=== PATIENT | female | born 1985 ===

== ENCOUNTER 2017-01-08 09:02 | Inpatient (IN) ==
[2017-01-08] MEDS ORDERED: GLUCAGON 1 MG VIAL IM PRN (09:37)
[2017-01-08] MEDS ORDERED: DEXTROSE 50% 25 GM/50 ML VIAL IV PRN (09:37)
[2017-01-08] MEDS: INSULIN REGULAR 100 UNIT/ML SUBCUT SCH ×3 (10:28→20:18)
[2017-01-08] MEDS: INSULIN NPH 100 UNIT/ML SUBCUT SCH ×2 (10:29→17:40)
[2017-01-08 10:37] LABS: Basophils % 0.2 % (0.0-0.8); Eosinophils # 0.1 10*3/uL (0.0-0.87); Eosinophils % 0.9 % (0.00-10.9); Hematocrit 34.9 VOL% (35.7-47.0); Hemoglobin 11.7 GM/DL (12.0-16.0); Immature Granulocytes % 0.4 %; Immature Granulocytes Absolute 0.05 #; Lymphocytes # 5.4 10*3/uL (1.4-4.0); Mean Corpuscular HGB Conc 33.5 GM/DL (32-36); Mean Corpuscular Hemoglobin 30 PG (27-34); Mean Corpuscular Volume 88.1 FL (87-102); Mean Platelet Volume 10.3 FL (9.6-12.0); Monocytes # 0.8 10*3/uL (0.11-0.8); Monocytes % 5.6 % (1.7-12.7); Neutrophils # 7.4 10*3/uL (1.4-7.4); Neutrophils % 53.9 % (38.7-73.9); Platelet Count 274 T/CUMM (130-400); Red Blood Count 3.96 MC/CUMM (3.8-5.5); Red Cell Distribution Width 12.8 % (9.3-17.3); White Blood Count 13.8 T/CUMM (4-12)
[2017-01-08 11:03] LABS: Bilirubin,Total 0.4 MG/DL (0.2-1.0); Calcium 8.5 MG/DL (8.5-10.1); Potassium 3.9 MMOL/L (3.5-5.1)
[2017-01-08] MEDS ORDERED: ONDANSETRON 4 MG TABLET PO PRN (16:04)
[2017-01-08] MEDS ORDERED: INSULIN NPH 100 UNIT/ML SUBCUT SCH (16:30)
[2017-01-08] MEDS: TOBRAMYCIN/DEXAMETHASONE 0.3%-0.1% OPH SUSP 2.5 ML BOTTLE LEFT EYE SCH (20:15)
[2017-01-09] MEDS: TOBRAMYCIN/DEXAMETHASONE 0.3%-0.1% OPH SUSP 2.5 ML BOTTLE LEFT EYE SCH ×6 (00:05→20:11)
[2017-01-09] MEDS: INSULIN REGULAR 100 UNIT/ML SUBCUT SCH ×5 (00:05→20:11)
[2017-01-09] MEDS: INSULIN NPH 100 UNIT/ML SUBCUT SCH ×2 (07:55→17:44)
[2017-01-09] MEDS ORDERED: INSULIN REGULAR 100 UNIT/ML SUBCUT ONE (09:43)
[2017-01-09] MEDS ORDERED: INSULIN NPH 100 UNIT/ML SUBCUT SCH ×2 (10:00→16:30)
[2017-01-09] MEDS ORDERED: INSULIN REGULAR ** CONC 500 UNIT/ML ** 20 ML VIAL SUBCUT SCH (16:30)
[2017-01-09] MEDS ORDERED: INSULIN REGULAR 100 UNIT/ML SUBCUT SCH ×2 (16:30→16:51)
[2017-01-09 17:15] LABS: Collection Time,Urine 24 HOURS; Total Volume,Urine 2450 ML (400-2000)
[2017-01-09 17:31] LABS: Total Protein 24 Hr Ur Result 220 MG/24HR (0-149.1)
[2017-01-09 17:32] LABS: Creatinine 24 Hr Urine Result 1.27 G/24HR (0.60-1.80)
[2017-01-10] MEDS: TOBRAMYCIN/DEXAMETHASONE 0.3%-0.1% OPH SUSP 2.5 ML BOTTLE LEFT EYE SCH ×3 (00:16→09:22)
[2017-01-10] MEDS: INSULIN REGULAR 100 UNIT/ML SUBCUT SCH (07:08)
[2017-01-10 07:26] VITALS: BP 100/71
[2017-01-10] MEDS ORDERED: INSULIN NPH 100 UNIT/ML SUBCUT SCH ×2 (07:30→16:30)
[2017-01-10] MEDS ORDERED: INSULIN REGULAR 100 UNIT/ML SUBCUT SCH ×2 (07:30→16:30)
== END 2017-01-10 12:00 | disposition home or self-care (01) | DRG 781 ==
LOC: N.LDOUT 09:02 → N.OB 09:10
PROVIDERS: ADMIT Obstetrics & Gynecology; ATTEND Obstetrics & Gynecology

== ENCOUNTER 2017-08-06 13:56 | Inpatient (IN) ==
[2017-08-06 16:16] LABS: Basophils % 0.2 % (0.0-0.8); Eosinophils % 0.1 % (0.00-10.9); Hematocrit 34.3 VOL% (35.7-47.0); Hemoglobin 11.2 GM/DL (12.0-16.0); Immature Granulocytes % 0.3 %; Immature Granulocytes Absolute 0.03 #; Lymphocytes # 3.6 10*3/uL (1.4-4.0); Lymphocytes % 38.7 % (21.3-54.2); Mean Corpuscular HGB Conc 32.7 GM/DL (32-36); Mean Corpuscular Hemoglobin 28 PG (27-34); Mean Corpuscular Volume 85.1 FL (87-102); Mean Platelet Volume 12.3 FL (9.6-12.0); Monocytes # 0.6 10*3/uL (0.11-0.8); Monocytes % 6.3 % (1.7-12.7); Neutrophils % 54.4 % (38.7-73.9); Platelet Count 175 T/CUMM (130-400); Red Blood Count 4.03 MC/CUMM (3.8-5.5); Red Cell Distribution Width 13.2 % (9.3-17.3); White Blood Count 9.2 T/CUMM (4-12)
[2017-08-06 16:22] LABS: INR 0.9; PT Patient Result 9.9 SECS; Partial Thromboplastin Time 28.4 SECS (0-40)
[2017-08-06 16:45] LABS: Apearance,Urine CLOUDY (Clear); Bacteria,Urine Occasional /HPF (Few); Bilirubin,Urine Negative (Negative); Blood, Urine Negative (Negative); Glucose,Urine (UA) >=500 mg/dL (Negative); Ketones,Urine Negative (Negative); Mucus,Urine Few /LPF (Occasional); Nitrite,Urine Negative (Negative); Protein,Urine 30 MG/DL; RBC,Urine 1 /HPF (0-4); Squamous Epithelial Cell,Urine Moderate /HPF (0-10); Urine Color Yellow (Yellow); WBC,Urine 4 /HPF (0-6)
[2017-08-06 16:50] LABS: Alanine Aminotransferase 12 U/L (13-56); Albumin 1.8 G/DL (3.4-5.0); Alkaline Phosphatase 192 U/L (45-117); Aspartate Amino Transferase 15 U/L (0-37); Bilirubin,Total < 0.39 MG/DL (0.2-1.0); Blood Urea Nitrogen 7 MG/DL (7-18); Calcium 7.9 MG/DL (8.5-10.1); Glucose 172 MG/DL (74-106); Osmolality,Calculated 278.5 MOS/KG (273-304); Potassium 3.7 MMOL/L (3.5-5.1); Sodium 139 MMOL/L (136-145); Total Protein 6.3 G/DL (6.4-8.3); Uric Acid 4.3 MG/DL (2.6-6.0)
[2017-08-06] MEDS ORDERED: GLUCAGON 1 MG VIAL IM PRN (17:03)
[2017-08-06] MEDS ORDERED: DEXTROSE 50% 25 GM/50 ML VIAL IV PRN (17:03)
[2017-08-06] MEDS ORDERED: INSULIN NPH 100 UNIT/ML SUBCUT SCH (18:30)
[2017-08-06] MEDS: INSULIN REGULAR 100 UNIT/ML SUBCUT SCH ×3 (18:33→22:10)
[2017-08-06] MEDS: LACTATED RINGERS 1,000 ML IV SCH (19:31)
[2017-08-06] MEDS ORDERED: ALUMINUM/MAGNES/SIMETH MAX STR 30 ML UDCUP PO ONE (23:15)
[2017-08-07] MEDS: INSULIN REGULAR 100 UNIT/ML SUBCUT SCH ×6 (00:03→22:29)
[2017-08-07] MEDS: LACTATED RINGERS 1,000 ML IV SCH ×3 (05:30→20:38)
[2017-08-07] MEDS ORDERED: ceFAZolin 2,000 MG in PREMIX 1 EACH IV ONE (08:46)
[2017-08-07] MEDS ORDERED: CITRIC ACID/SODIUM CITRATE 30 ML UDCUP PO ONE (08:46)
[2017-08-07] MEDS ORDERED: FAMOTIDINE 20 MG/2 ML VIAL IV ONE (08:46)
[2017-08-07 10:31] LABS: Basophils % 0.3 % (0.0-0.8); Eosinophils % 0.1 % (0.00-10.9); Hematocrit 38.3 VOL% (35.7-47.0); Hemoglobin 12.3 GM/DL (12.0-16.0); Immature Granulocytes % 0.4 %; Immature Granulocytes Absolute 0.04 #; Lymphocytes # 3.5 10*3/uL (1.4-4.0); Lymphocytes % 32.7 % (21.3-54.2); Mean Corpuscular HGB Conc 32.1 GM/DL (32-36); Mean Corpuscular Hemoglobin 28 PG (27-34); Mean Corpuscular Volume 85.7 FL (87-102); Mean Platelet Volume 12.6 FL (9.6-12.0); Monocytes # 0.6 10*3/uL (0.11-0.8); Monocytes % 5.6 % (1.7-12.7); Neutrophils # 6.6 10*3/uL (1.4-7.4); Neutrophils % 60.9 % (38.7-73.9); Platelet Count 178 T/CUMM (130-400); Red Blood Count 4.47 MC/CUMM (3.8-5.5); Red Cell Distribution Width 13.4 % (9.3-17.3); White Blood Count 10.8 T/CUMM (4-12)
[2017-08-07] MEDS ORDERED: ONDANSETRON 4 MG/2 ML VIAL ONE (11:04)
[2017-08-07] MEDS ORDERED: BUPIVACAINE SPINAL 0.75% 2 ML AMP SPINAL ONE (11:04)
[2017-08-07] MEDS ORDERED: OXYTOCIN/LR 30 UNIT/1,000 ML BAG IV ONE (12:10)
[2017-08-07] MEDS ORDERED: OXYTOCIN 10 UNIT/ML VIAL ONE (12:28)
[2017-08-07] MEDS ORDERED: SODIUM CHLORIDE 0.9% 1,000 ML IV PRN (13:20)
[2017-08-07] MEDS ORDERED: OXYTOCIN/LR 20 UNIT/1,000 ML BAG IV ONE ×2 (13:37→13:59)
[2017-08-07 13:45] LABS: Cord Arterial Blood HCO3 24.4 MMOL/L
[2017-08-07 13:48] LABS: Cord Venous Blood HCO3 23.1 MMOL/L; Cord Venous Blood PCO2 58.6 MMHG; Cord Venous Blood PO2 36.4 MMHG
[2017-08-07] MEDS ORDERED: DEXTROSE 50% 25 GM/50 ML VIAL IV PRN (13:59)
[2017-08-07] MEDS ORDERED: ONDANSETRON 4 MG/2 ML VIAL IV PRN (13:59)
[2017-08-07] MEDS ORDERED: RHO(D) IMMUNE GLOBULIN 300 MCG SYRINGE IM ONE (13:59)
[2017-08-07] MEDS ORDERED: MAGNESIUM HYDROXIDE SUSP 30 ML UDCUP PO PRN (13:59)
[2017-08-07] MEDS ORDERED: GLUCAGON 1 MG VIAL IM PRN (13:59)
[2017-08-07] MEDS ORDERED: SIMETHICONE CHEW 80 MG TABLET PO PRN (13:59)
[2017-08-07] MEDS ORDERED: ACETAMINOPHEN 325 MG TABLET PO PRN (13:59)
[2017-08-07] MEDS ORDERED: ceFAZolin 1,000 MG in SYRINGE 1 EACH IV SCH (14:00)
[2017-08-07] MEDS ORDERED: MORPHINE 10 MG/10 ML VIAL ONE (14:15)
[2017-08-07] MEDS ORDERED: SEVOFLURANE 1 UNIT/15 MINUTE INH ONE (14:15)
[2017-08-07] MEDS ORDERED: PROPOFOL 200 MG/20 ML VIAL IV ONE (14:15)
[2017-08-07] MEDS ORDERED: ePHEDrine 50 MG/ML AMP ONE (14:16)
[2017-08-07] MEDS ORDERED: fentaNYL 100 MCG/2 ML VIAL ONE (14:16)
[2017-08-07] MEDS ORDERED: SODIUM CHLORIDE 0.9% 250 ML IV ONE (14:16)
[2017-08-07] MEDS ORDERED: MIDAZOLAM 2 MG/2 ML VIAL ONE (14:16)
[2017-08-07] MEDS ORDERED: SUCCINYLCHOLINE 200 MG/10 ML VIAL ONE (14:16)
[2017-08-07] MEDS ORDERED: FUROSEMIDE 20 MG/2 ML VIAL ONE (14:16)
[2017-08-07] MEDS ORDERED: NALOXONE 0.4 MG/ML VIAL IV PRN (14:35)
[2017-08-07] MEDS ORDERED: MORPHINE PCA 30 MG/30 ML SYRINGE IV ONE (14:36)
[2017-08-07] MEDS ORDERED: MORPHINE PCA 30 MG/30 ML SYRINGE IV SCH (15:00)
[2017-08-07 16:09] LABS: Apearance,Urine CLEAR (Clear); Bacteria,Urine Occasional /HPF (Few); Bilirubin,Urine Negative (Negative); Blood, Urine Small mg/dL (Negative); Glucose,Urine (UA) Negative (Negative); Ketones,Urine 20 mg/dL (Negative); Mucus,Urine Occasional /LPF (Occasional); Nitrite,Urine Negative (Negative); Protein,Urine Negative; RBC,Urine 14 /HPF (0-4); Squamous Epithelial Cell,Urine Occasional /HPF (0-10); Urine Color Yellow (Yellow); Urine Specific Gravity 1.009 (1.001-1.035); Urine Urobilinogen < 2.0 EU/DL (0.2-1.0); WBC,Urine 1 /HPF (0-6)
[2017-08-07] MEDS: ceFAZolin 1,000 MG in SYRINGE 1 EACH IV SCH (20:40)
[2017-08-07] MEDS: DOCUSATE SODIUM 100 MG CAPSULE PO SCH (21:32)
[2017-08-07 22:02] LABS: Basophils % 0.2 % (0.0-0.8); Hematocrit 35.3 VOL% (35.7-47.0); Hemoglobin 11.8 GM/DL (12.0-16.0); Immature Granulocytes % 0.5 %; Immature Granulocytes Absolute 0.07 #; Lymphocytes # 2.7 10*3/uL (1.4-4.0); Mean Corpuscular HGB Conc 33.4 GM/DL (32-36); Mean Corpuscular Hemoglobin 28 PG (27-34); Mean Corpuscular Volume 84.9 FL (87-102); Mean Platelet Volume 11.9 FL (9.6-12.0); Monocytes # 0.9 10*3/uL (0.11-0.8); Monocytes % 5.9 % (1.7-12.7); Neutrophils # 11.5 10*3/uL (1.4-7.4); Neutrophils % 75.4 % (38.7-73.9); Platelet Count 156 T/CUMM (130-400); Red Blood Count 4.16 MC/CUMM (3.8-5.5); Red Cell Distribution Width 13.5 % (9.3-17.3); White Blood Count 15.2 T/CUMM (4-12)
[2017-08-08 05:27] LABS: Basophils % 0.3 % (0.0-0.8); Hematocrit 32.8 VOL% (35.7-47.0); Hemoglobin 11.1 GM/DL (12.0-16.0); Immature Granulocytes % 0.6 %; Immature Granulocytes Absolute 0.08 #; Lymphocytes # 2.4 10*3/uL (1.4-4.0); Lymphocytes % 17.1 % (21.3-54.2); Mean Corpuscular HGB Conc 33.8 GM/DL (32-36); Mean Corpuscular Hemoglobin 29 PG (27-34); Mean Corpuscular Volume 84.8 FL (87-102); Mean Platelet Volume 12.1 FL (9.6-12.0); Monocytes # 0.9 10*3/uL (0.11-0.8); Monocytes % 6.1 % (1.7-12.7); Neutrophils # 10.6 10*3/uL (1.4-7.4); Neutrophils % 75.9 % (38.7-73.9); Platelet Count 158 T/CUMM (130-400); Red Blood Count 3.87 MC/CUMM (3.8-5.5); Red Cell Distribution Width 13.5 % (9.3-17.3)
[2017-08-08] MEDS: ceFAZolin 1,000 MG in SYRINGE 1 EACH IV SCH (05:46)
[2017-08-08] MEDS: LACTATED RINGERS 1,000 ML IV SCH ×2 (05:46)
[2017-08-08] MEDS: INSULIN REGULAR 100 UNIT/ML SUBCUT SCH ×4 (11:13→21:31)
[2017-08-08] MEDS: MULTIVITAMIN (PRENATAL) TABLET PO SCH (11:19)
[2017-08-08] MEDS: DOCUSATE SODIUM 100 MG CAPSULE PO SCH ×2 (11:19→21:32)
[2017-08-08] MEDS: IBUPROFEN 800 MG TABLET PO PRN (13:49)
[2017-08-08] MEDS: oxyCODONE/ACETAMINOPHEN 5-325 MG TABLET PO PRN (16:40)
[2017-08-09] MEDS: INSULIN REGULAR 100 UNIT/ML SUBCUT SCH ×4 (07:57→22:20)
[2017-08-09] MEDS: MULTIVITAMIN (PRENATAL) TABLET PO SCH (09:49)
[2017-08-09] MEDS: DOCUSATE SODIUM 100 MG CAPSULE PO SCH ×2 (09:49→22:21)
[2017-08-09] MEDS: oxyCODONE/ACETAMINOPHEN 5-325 MG TABLET PO PRN ×2 (09:49→15:50)
[2017-08-10] MEDS: IBUPROFEN 800 MG TABLET PO PRN (04:40)
[2017-08-10] MEDS: INSULIN REGULAR 100 UNIT/ML SUBCUT SCH ×2 (07:53→13:50)
[2017-08-10] MEDS: MULTIVITAMIN (PRENATAL) TABLET PO SCH (10:04)
[2017-08-10] MEDS: DOCUSATE SODIUM 100 MG CAPSULE PO SCH (10:04)
[2017-08-10] MEDS: oxyCODONE/ACETAMINOPHEN 5-325 MG TABLET PO PRN (10:08)
[2017-08-10 10:43] VITALS: BP 134/81
[2017-08-10] MEDS ORDERED: MEASLES/MUMPS/RUBELLA VACCINE 0.5 ML VIAL SUBCUT ONE (12:37)
== END 2017-08-10 13:45 | disposition home or self-care (01) | DRG 540 ==
LOC: N.LDOUT 13:56 → N.LD 13:57 → N.OB 08-07 16:16
PROVIDERS: ADMIT Obstetrics & Gynecology; ATTEND Obstetrics & Gynecology

== ENCOUNTER 2018-03-04 21:52 | Inpatient (IN) ==
[2018-03-04] MEDS ORDERED: INSULIN REGULAR 100 UNIT/ML IV STA (22:34)
[2018-03-04] MEDS ORDERED: SODIUM CHLORIDE 0.9% 2,000 ML IV STA (22:34)
[2018-03-04] MEDS ORDERED: DEXTROSE 50% 25 GM/50 ML SYRINGE IV PRN (23:12)
[2018-03-04] MEDS ORDERED: GLUCAGON 1 MG VIAL IM PRN (23:12)
[2018-03-04] MEDS ORDERED: ONDANSETRON 4 MG/2 ML VIAL IV PRN (23:12)
[2018-03-04] MEDS ORDERED: IBUPROFEN 800 MG TABLET PO PRN (23:16)
[2018-03-05] MEDS ORDERED: DEXTROSE 50% 25 GM/50 ML VIAL IV PRN (00:30)
[2018-03-05] MEDS: CEFTAROLINE 600 MG in SODIUM CHLORIDE 0.9% 100 ML IV SCH ×3 (01:09→18:02)
[2018-03-05] MEDS: PIPERACILLIN/TAZOBACTAM 3,375 MG in SODIUM CHLORIDE 0.9% 100 ML IV SCH ×3 (01:38→22:25)
[2018-03-05] MEDS: MORPHINE 4 MG/1 ML VIAL IV PRN ×3 (06:30→22:26)
[2018-03-05 07:55] LABS: Albumin 2.5 G/DL (3.4-5.0); Bilirubin,Total 0.6 MG/DL (0.2-1.0); Calcium 8.7 MG/DL (8.5-10.1); Osmolality,Calculated 287.7 MOS/KG (273-304); Potassium 4.6 MMOL/L (3.5-5.1); Total Protein 8.4 G/DL (6.4-8.3)
[2018-03-05 07:56] LABS: Basophils % 0.2 % (0.0-0.8); Hematocrit 35.5 VOL% (35.7-47.0); Immature Granulocytes % 1.2 %; Immature Granulocytes Absolute 0.16 #; Lymphocytes % 15.1 % (21.3-54.2); Mean Corpuscular Hemoglobin 21 PG (27-34); Mean Corpuscular Volume 71.7 FL (87-102); Mean Platelet Volume 9.7 FL (9.6-12.0); Monocytes # 0.1 10*3/uL (0.11-0.8); Monocytes % 0.8 % (1.7-12.7); Neutrophils # 10.8 10*3/uL (1.4-7.4); Neutrophils % 82.7 % (38.7-73.9); Platelet Count 499 T/CUMM (130-400); Red Blood Count 4.95 MC/CUMM (3.8-5.5); Red Cell Distribution Width 19.3 % (9.3-17.3)
[2018-03-05 07:57] LABS: Hemoglobin 10.3 GM/DL (12.0-16.0)
[2018-03-05] MEDS ORDERED: INSULIN REGULAR 100 UNIT/ML SUBCUT SCH (08:00)
[2018-03-05] MEDS ORDERED: INSULIN NPH 100 UNIT/ML SUBCUT SCH (08:00)
[2018-03-05 08:05] LABS: Band Neutrophils 2 % (0-10); Eosinophils 1 % (0-10); Hypochromasia 1+; Lymphocytes 10 % (20-55); Platelet Estimate Adequate; Segmented Neutrophils 86 % (50-85); Total Cells Counted 100
[2018-03-05] MEDS ORDERED: INFLUENZA VIRUS VACCINE 0.5 ML SYRINGE IM ONE (09:00)
[2018-03-05] MEDS ORDERED: ENOXAPARIN 40 MG/0.4 ML SYRINGE SUBCUT SCH (09:00)
[2018-03-05] MEDS: INSULIN REGULAR 100 UNIT/ML SUBCUT SCH ×4 (09:01→22:26)
[2018-03-05] MEDS ORDERED: BUPIVACAINE 0.5% 50 ML VIAL ONE (10:06)
[2018-03-05] MEDS ORDERED: LIDOCAINE 1%/EPI INJ 20 ML VIAL ONE (10:06)
[2018-03-05] MEDS ORDERED: PROPOFOL 200 MG/20 ML VIAL IV ONE (11:18)
[2018-03-05] MEDS ORDERED: MIDAZOLAM 2 MG/2 ML VIAL ONE (11:19)
[2018-03-05] MEDS ORDERED: ONDANSETRON 4 MG/2 ML VIAL ONE (11:19)
[2018-03-05] MEDS ORDERED: fentaNYL 100 MCG/2 ML VIAL ONE ×2 (11:19)
[2018-03-05] MEDS ORDERED: SEVOFLURANE 1 UNIT/15 MINUTE INH ONE (11:19)
[2018-03-05] MEDS: PANTOPRAZOLE 40 MG TABLET PO SCH (16:51)
[2018-03-06] MEDS: PIPERACILLIN/TAZOBACTAM 3,375 MG in SODIUM CHLORIDE 0.9% 100 ML IV SCH (04:09)
[2018-03-06] MEDS: INSULIN REGULAR 100 UNIT/ML SUBCUT SCH ×2 (08:38→13:19)
[2018-03-06] MEDS ORDERED: INSULIN NPH 100 UNIT/ML SUBCUT SCH (09:00)
[2018-03-06] MEDS ORDERED: INSULIN REGULAR 100 UNIT/ML SUBCUT SCH (09:00)
[2018-03-06] MEDS ORDERED: metroNIDAZOLE INJ 500 MG in PREMIX 1 EACH IV SCH (09:00)
[2018-03-06 09:35] LABS: Basophils # 0.1 10*3/uL (0.0-0.2); Basophils % 0.4 % (0.0-0.8); Eosinophils % 0.3 % (0.00-10.9); Hematocrit 30.9 VOL% (35.7-47.0); Immature Granulocytes % 0.9 %; Lymphocytes # 5.6 10*3/uL (1.4-4.0); Lymphocytes % 47.8 % (21.3-54.2); Mean Corpuscular HGB Conc 29.1 GM/DL (32-36); Mean Corpuscular Hemoglobin 21 PG (27-34); Mean Corpuscular Volume 71.2 FL (87-102); Mean Platelet Volume 9.3 FL (9.6-12.0); Monocytes # 0.6 10*3/uL (0.11-0.8); Monocytes % 4.8 % (1.7-12.7); Neutrophils # 5.4 10*3/uL (1.4-7.4); Neutrophils % 45.8 % (38.7-73.9); Platelet Count 443 T/CUMM (130-400); Red Blood Count 4.34 MC/CUMM (3.8-5.5); Red Cell Distribution Width 19.3 % (9.3-17.3); White Blood Count 11.7 T/CUMM (4-12)
[2018-03-06 09:57] LABS: Calcium 8.2 MG/DL (8.5-10.1); Osmolality,Calculated 284.8 MOS/KG (273-304); Potassium 3.9 MMOL/L (3.5-5.1)
[2018-03-06] MEDS: CEFTAROLINE 600 MG in SODIUM CHLORIDE 0.9% 100 ML IV SCH (10:03)
[2018-03-06 13:15] VITALS: BP 116/73
[2018-03-06] MEDS: PANTOPRAZOLE 40 MG TABLET PO SCH (14:37)
== END 2018-03-06 13:24 | disposition home or self-care (01) | DRG 622 ==
LOC: EDUNIT# → N.ED 21:52 → N.EDINP 23:12 → N.5E 03-05
PROVIDERS: ADMIT Surgery; ATTEND Surgery